=== PATIENT | male | born 1960 | race Caucasian/White ===

== ENCOUNTER 2017-10-29 09:38 | Emergency (ER) | payer OTHER ==
[~2017-10-29] VITALS: Ht 177.8 cm; Wt 93.0 kg
[~2017-10-29 09:38] MED LIST: DICLOFENAC SODI50 MG
== END 2017-10-29 13:53 | disposition home or self-care (01) ==
LOC: ER 09:38
DX: J06.9 Acute upper respiratory infection, unspecified (principal)

== ENCOUNTER 2021-01-17 17:45 | Emergency (ER) | payer OTHER ==
[~2021-01-17] VITALS: Ht 180.3 cm; Wt 83.9 kg
[2021-01-17] MEDS ORDERED: SIMVASTATIN5 MG (18:06)
[2021-01-17] MEDS ORDERED: COZAAR50 MG (18:06)
[2021-01-17] MEDS ORDERED: PEPCID AC20 MG (18:06)
[2021-01-17] MEDS ORDERED: METFORMIN HCL500 MG (18:06)
[2021-01-17] MEDS ORDERED: ASA81 MG (18:06)
[2021-01-17] MEDS ORDERED: ZITHROMAX500 MG PO (19:50)
[2021-01-17] MEDS ORDERED: ZYRTEC10 M3 PO (19:50)
== END 2021-01-17 20:03 | disposition home or self-care (01) ==
LOC: ER 17:45
DX: R09.81 Nasal congestion (principal); E11.9 Type 2 diabetes mellitus without complications; I10 Essential (primary) hypertension; Z20.822 Contact with and (suspected) exposure to COVID-19